=== PATIENT | male | born 2000 | race Caucasian/White ===

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

== ENCOUNTER 2020-11-29 21:13 | Emergency (ER) | payer MEDICAID, OTHER ==
[~2020-11-29] VITALS: Ht 182.9 cm; Wt 77.1 kg
[2020-11-29 21:50] VITALS: BP 135/66
--- NOTE | 2020-11-29 21:53 | NUR ---
to lobby a/w bed ambulatory
[2020-11-29 23:05] VITALS: BP 135/66
[2020-11-29] MEDS ORDERED: IBUPROFEN 600 MG TAB PO ONE (23:05)
--- NOTE | 2020-11-29 23:05 | NUR ---
medicated as per ermds order, tolerated well.
--- NOTE | 2020-11-29 23:33 | NUR ---
urine spicemen sent to lab
[2020-11-29 23:40] LABS: APPEARANCE,URINE CLEAR (CLEAR); BILIRUBIN,URINE NEGATIVE (NEGATIVE); BLOOD, URINE 1+ (NEGATIVE); LEUKOCYTE ESTERASE ,URINE NEGATIVE (NEGATIVE); NITRITE, URINE NEGATIVE (NEGATIVE); UGLUCOSE NEGATIVE (NEGATIVE)
[2020-11-29 23:50] LABS: COLOR,URINE YELLOW (YELLOW)
[2020-11-29 23:52] LABS: RBC,URINE 11-20 (MOD) /HPF (0-5); WBC,URINE 0-5 /HPF (0-5)
[2020-11-30] MEDS ORDERED: MAGN1.7529 PO (01:24)
--- NOTE | 2020-11-30 02:10 | NUR ---
results back and noted by ERMD and for d/c
--- NOTE | 2020-11-30 02:20 | NUR ---
Patient went home , No after care instructions given.
== END 2020-11-30 02:20 | disposition home or self-care (01) ==
LOC: MED 21:13
DX: K59.00 Constipation, unspecified (principal); R11.0 Nausea; Z79.899 Other long term (current) drug therapy
CPT/HCPCS: 74021; 81001; 87086; 99284

== ENCOUNTER 2023-09-13 10:22 | Emergency (ER) | payer MEDICAID ==
[~2023-09-13] VITALS: Ht 185.4 cm; Wt 83.0 kg
[~2023-09-13 10:22] MED LIST: MAGN296S70 PO
[2023-09-13 10:30] VITALS: BP 111/58; PULSE 76; RESP 17; TEMP 98.6; O2SAT 98
[2023-09-13] MEDS: NACL 0.9% 1,000 ML IV SCH (10:59)
[2023-09-13] MEDS: KETOROLAC 30 MG/ML VIAL IVP ONE (11:12)
[2023-09-13] MEDS: FAMOTIDINE 20 MG/2 ML VIAL IVP ONE (11:14)
[2023-09-13] MEDS: ONDANSETRON 4 MG/2 ML VIAL IVP ONE (11:17)
[2023-09-13 11:23] LABS: BASOPHILS # (AUTO) 0.1 K/uL (0.00-0.22); BASOPHILS % (AUTO) 0.9 % (0.0-2.0); EOSINOPHILS % (AUTO) 0.2 % (0.0-4.0); HEMATOCRIT 45.6 % (36-52); HEMOGLOBIN 15.3 g/dL (12.0-18.0); LYMPHOCYTES # (AUTO) 0.7 K/uL (2.0-11.5); LYMPHOCYTES % (AUTO) 12.1 % (20.5-51.1); MEAN CORPUSCULAR HEMOGLOBIN 30 pg (27-31); MEAN CORPUSCULAR HGB CONC 34 g/dL (33-37); MEAN CORPUSCULAR VOLUME 88.9 fL (80-94); MONOCYTES # (AUTO) 0.7 K/uL (0.8-1.0); NEUTROPHILS # (AUTO) 4.5 K/uL (1.8-7.7); NEUTROPHILS % (AUTO) 75.8 % (42.2-75.2); PLATELET COUNT (AUTO) 219 K/uL (140-450); RED BLOOD CELL COUNT(AUTO) 5.13 MIL/uL (4.20-6.10); RED CELL DISTRIBUTION WIDTH 13.7 % (11.6-13.7)
[2023-09-13 11:34] LABS: APPEARANCE,URINE CLEAR (CLEAR); BILIRUBIN,URINE NEGATIVE (NEGATIVE); COLOR,URINE YELLOW (YELLOW); LEUKOCYTE ESTERASE ,URINE NEGATIVE (NEGATIVE); NITRITE, URINE NEGATIVE (NEGATIVE); PROTEIN,URINE NEGATIVE (NEGATIVE); UGLUCOSE NEGATIVE (NEGATIVE); UROBILINOGEN,URINE 0.2 EU/dL (0.2 - 1)
[2023-09-13 11:37] LABS: ANION GAP 11.3 (8-16); CALCIUM 9.1 mg/dL (8.5-10.1); CREATININE 0.9 mg/dL (0.6-1.3); POTASSIUM 3.3 mmol/L (3.5-5.1)
[2023-09-13 11:38] LABS: ALBUMIN 4.3 g/dL (3.4-5.0); BILIRUBIN,DIRECT 0.1 mg/dL (0.0-0.3); TOTAL BILIRUBIN 0.6 mg/dL (0.0-1.0); TOTAL PROTEIN, SERUM 7.7 g/dL (6.4-8.2)
[2023-09-13 11:54] LABS: FLU A ANTIGEN negative (NEGATIVE); FLU B ANTIGEN negative (NEGATIVE)
[2023-09-13 11:55] LABS: BACTERIA,URINE OCCASSIONAL /HPF (None Seen); BLOOD, URINE 1+ (NEGATIVE); MUCUS,URINE 1+ /LPF (None Seen); RBC,URINE 0-5 /HPF (0-5); SQUAMOUS EPITHELIAL CELL,UR 0-3 (FEW) /LPF (0-3 (FEW)); WBC,URINE 0-5 /HPF (0-5)
[2023-09-13] MEDS ORDERED: NAPR-1704 PO (12:31)
[2023-09-13] MEDS ORDERED: ONDA-188 PO (12:31)
[2023-09-13] MEDS: POTASSIUM CHLORIDE 10 MEQ TABER PO ONE (12:38)
[2023-09-13 12:46] VITALS: BP 121/64; PULSE 75; RESP 18; TEMP 98.6; O2SAT 100
== END 2023-09-13 12:46 | disposition home or self-care (01) ==
LOC: MED 10:22
DX: B34.9 Viral infection, unspecified (principal); Z20.822 Contact with and (suspected) exposure to COVID-19; J45.909 Unspecified asthma, uncomplicated; F12.90 Cannabis use, unspecified, uncomplicated; Z79.1 Long term (current) use of non-steroidal anti-inflammatories (NSAID); Z79.899 Other long term (current) drug therapy
CPT/HCPCS: 36415; 80048; 80076; 81001; 83690; 85025; 87426; 87804; 96361; 96374; 96375; 99284; J1885; J2405; J3490; J7030

== ENCOUNTER 2023-09-14 11:16 | Emergency (ER) | payer MEDICAID ==
[~2023-09-14] VITALS: Ht 185.4 cm; Wt 79.4 kg
[~2023-09-14 11:16] MED LIST changes: +NAPR-1704 PO; +ONDA-188 PO
[2023-09-14 11:37] VITALS: BP 113/53; PULSE 66; RESP 18; TEMP 98.8; O2SAT 98
[2023-09-14 12:05] VITALS: O2SAT 98
[2023-09-14 12:53] LABS: BASOPHILS % (AUTO) 0.8 % (0.0-2.0); HEMOGLOBIN 14.8 g/dL (12.0-18.0); LYMPHOCYTES # (AUTO) 0.6 K/uL (2.0-11.5); LYMPHOCYTES % (AUTO) 12.7 % (20.5-51.1); MEAN CORPUSCULAR HEMOGLOBIN 30 pg (27-31); MEAN CORPUSCULAR HGB CONC 34 g/dL (33-37); MEAN CORPUSCULAR VOLUME 87.7 fL (80-94); MONOCYTES # (AUTO) 0.5 K/uL (0.8-1.0); MONOCYTES % (AUTO) 11.6 % (1.7-9.3); NEUTROPHILS # (AUTO) 3.3 K/uL (1.8-7.7); NEUTROPHILS % (AUTO) 74.9 % (42.2-75.2); PLATELET COUNT (AUTO) 188 K/uL (140-450); RED CELL DISTRIBUTION WIDTH 13.7 % (11.6-13.7); WHITE BLOOD COUNT (AUTO) 4.4 K/uL (4.8-10.8)
[2023-09-14] MEDS: NACL 0.9% 1,000 ML IV ONE (13:27)
[2023-09-14 13:29] LABS: ANION GAP 11.6 (8-16); CALCIUM 9.3 mg/dL (8.5-10.1); CARBON DIOXIDE 26.1 mmol/L (21-32); POTASSIUM 3.7 mmol/L (3.5-5.1)
[2023-09-14] MEDS: ACETAMINOPHEN EXTRA STRENGTH 500 MG TAB PO ONE (13:34)
[2023-09-14] MEDS: ONDANSETRON 4 MG/2 ML VIAL IVP ONE (13:35)
[2023-09-14] MEDS: KETOROLAC 30 MG/ML VIAL IVP ONE (13:38)
[2023-09-14 13:42] LABS: ALBUMIN 4.1 g/dL (3.4-5.0); BILIRUBIN,DIRECT 0.2 mg/dL (0.0-0.3); TOTAL BILIRUBIN 0.5 mg/dL (0.0-1.0); TOTAL PROTEIN, SERUM 7.2 g/dL (6.4-8.2)
[2023-09-14 14:24] LABS: APPEARANCE,URINE CLEAR (CLEAR); BILIRUBIN,URINE NEGATIVE (NEGATIVE); BLOOD, URINE 1+ (NEGATIVE); COLOR,URINE YELLOW (YELLOW); LEUKOCYTE ESTERASE ,URINE NEGATIVE (NEGATIVE); NITRITE, URINE NEGATIVE (NEGATIVE); PROTEIN,URINE NEGATIVE (NEGATIVE); UGLUCOSE NEGATIVE (NEGATIVE)
[2023-09-14 14:35] LABS: BACTERIA,URINE FEW /HPF (None Seen); SQUAMOUS EPITHELIAL CELL,UR 0-3 (FEW) /LPF (0-3 (FEW)); WBC,URINE 0-5 /HPF (0-5)
[2023-09-14 15:49] VITALS: BP 109/53; PULSE 58; RESP 14; TEMP 98.8; O2SAT 99
== END 2023-09-14 15:49 | disposition home or self-care (01) ==
LOC: MED 11:16
DX: K29.70 Gastritis, unspecified, without bleeding (principal); J45.909 Unspecified asthma, uncomplicated; Z79.1 Long term (current) use of non-steroidal anti-inflammatories (NSAID); Z79.899 Other long term (current) drug therapy
CPT/HCPCS: 36415; 80048; 80076; 81001; 83690; 85025; 96361; 96374; 96375; 99284; J1885; J2405; J7030